=== PATIENT | female | born 1975 ===

== ENCOUNTER 2018-07-01 17:17 | Emergency (ER) | payer OTHER ==
[2018-07-01 17:43] VITALS: BMI 27.4
[2018-07-01 17:47] VITALS: RESP 18; O2SAT 100
[2018-07-01] MEDS ORDERED: Iohexol 240 (50 ml) PO STA (18:31)
--- NOTE | 2018-07-01 18:35 | C.PDOC ---
History Of Present Illness 42 y/o female presents to the ED for evaluation of a painful swelling to her left groin/vaginal area. Patient reports the area was initially smaller and has grown in size, especially over the last week. She notes for the last 2 nights she was unable to sleep due to increase in pain. Otherwise she denies any vaginal bleeding, discharge or bleeding from the site, fevers, chills, or urinary complaints. Patient denies prior hx of surgery. She was seen in [place] several months ago and was told it may be a cyst vs hernia, but never given definitive answer. Patient has an appointment in a clinic at the end of the month, but was unable to wait due to worsening symptoms. Time Seen by Provider: 07/01/18 18:06 Chief Complaint (Nursing): Female Genitourinary History Per: Patient History/Exam Limitations: no limitations Onset/Duration Of Symptoms: Days Current Symptoms Are (Timing): Worse Quality Of Discomfort: "Pain" Past Medical History Reviewed: Historical Data, Nursing Documentation, Vital Signs Vital Signs: Last Vital Signs Temp 99.1 F 07/01/18 17:43 Pulse 90 07/01/18 17:43 Resp 18 07/01/18 17:43 BP 157/90 H 07/01/18 17:43 Pulse Ox 100 07/01/18 17:43 - Medical History PMH: No Chronic Diseases Surgical History: No Surg Hx Family History: States: No Known Family Hx - Social History Hx Tobacco Use: No Hx Alcohol Use: No Hx Substance Use: No Review Of Systems Except As Marked, All Systems Reviewed And Found Negative. Constitutional: Negative for: Fever, Chills Cardiovascular: Negative for: Chest Pain Respiratory: Negative for: Shortness of Breath Gastrointestinal: Negative for: Nausea, Vomiting, Diarrhea Genitourinary: Positive for: Other (Left groin mass/pain). Negative for: Dysu jessee, Frequency, Vaginal Discharge, Vaginal Bleeding Skin: Negative for: Rash Neurological: Negative for: Weakness, Numbness Physical Exam - Physical Exam Appears: Non-toxic Skin: Normal Color, Warm, No Rash Head: Atraumatic, Normacephalic Eye(s): bilateral: Normal Inspection, PERRL, EOMI Neck: Normal ROM Chest: Symmetrical Cardiovascular: Rhythm Regular, No Murmur Respiratory: Normal Breath Sounds, No Accessory Muscle Use, Other (No respiratory distress) Gastrointestinal/Abdominal: Soft, No Tenderness, No Distention Pelvic: No Vaginal Bleeding, No Vaginal Discharge, Other (External Exam: There is a 5x6 cm area of induration to the left inguinal region, non-reducible, non- mobile, with no fluctuance, no drainage, no rashes) Extremity: Bilateral: Atraumatic, Normal Color And Temperature Neurological/Psych: Oriented x3, Normal Speech ED Course And Treatment - Laboratory Results Result Diagrams: 07/01/18 18:50 07/01/18 18:50 O2 Sat by Pulse Oximetry: 100 (RA) Pulse Ox Interpretation: Normal - CT Scan/US Pelvic US Other Rad Studies (CT/US): Read By Radiologist, Radiology Report Reviewed CT/US Interpretation: Name:CHIQUI SULLIVAN Exam Date:Jul 01, 2018 7:39:52 PM EDT. Modality Type:SD\\US\\SR. Description:US - PELVIC REAL TIME TRANSABDOMINAL/TRANSVAGINAL W COLOR DOPPLER. Gender:F Laterality:Not applicable. :75 Referring Physician:Kristen Adler ([place]). History. Pelvic pain. Left inguinal mass versus hernia. Comparison. CT same date. Technique. TA/TV. Findings. Uterus. Measures 12.01 x 6.85 x 7.96 cm. Posterior fibroid measures 2.11 x 1.35 x 1.59 cm. Mid uterine fibroid measures 2.16 x 2.06 x 1.94 cm. Fundal uterine fibroid measures 4.54 x 4.75 x 4.97 cm. Endometrium. Measures 13 mm in diameter. Unremarkable. Right ovary. Measures 3.21 x 2.41 x 2.68 cm. No solid mass. Normal flow. Free fluid is seen around the ovary. Left ovary. Measures 2.55 x 1.93 x 2.37 cm. No solid mass. Normal flow. Free fluid. Free fluid noted in the pelvic cul-de-sac. Other Findings. Left inguinal area palpable mass shows large cy stic structure with septations measuring 9.18 x 4.23 x 9.12 cm. Impression. 1. Uterine fibroids. 2. Left inguinal large cystic structure with septations measuring 9.18 x 4.23 x 9.[address] report. 3. Free fluid in the pelvic cul-de-sac. 4. Free fluid around the right ovary. . Electronically signed on Jul 01, 2018 9:20:01 PM EDT by: Audie Davis M.D., MOON Certified By ABR & [facility] CT Abdomen/Pelvis Other Rad Studies (CT/US): Read By Radiologist, Radiology Report Reviewed CT/US Interpretation: Name:CHRISTINE FLORIAN Exam Date:Jul 01, 2018 8:35:04 PM EDT. Modality Type:CT. Description:CT - ABDOMEN AND PELVIS WITH CORONAL AND SAGITTAL MPRS. Gender:F Laterality:Not applicable. :75 Referring Physician:Kristen Adler). EXAM: CT Abdomen and Pelvis with IV contrast. CLINICAL HISTORY: Pelvic Pain, Ultrasound done today as well. TECHNIQUE: Axial computed tomography images of the abdomen and pelvis with intravenous contrast. 0.00 mGy-cm. CONTRAST: With; OMNI 240 & VISI 320 100MLS. COMPARISON: Comparison is made to pelvic ultrasound evaluation performed earlier the same date. FINDINGS: LUNG BASES: The lung bases appear clear. No pleural effusions are seen. LIVER: Unremarkable. GALLBLADDER AND BILE DUCTS: The gallbladder appears within normal limits. No radioopaque gallstones are seen. No biliary ductal dilatation is evident. PANCREAS: Unremarkable. SPLEEN: Unremarkable. ADRENAL GLANDS: Unremarkable. KIDNEYS, URETERS, AND BLADDER: The kidneys appear within normal limits. There is no hydronephrosis or hydroureter. No urinary calculi are seen. The urinary bladder appeared normal in size and configuration. STOMACH AND B OWEL: Unremarkable appearance of the stomach. No evidence of bowel obstruction. No evidence suggesting enteritis or colitis. Relatively abundant fecal material is present in the colon suggestive of constipation. APPENDIX: No evidence of acute appendicitis on CT examination. PERITONEUM: No free fluid. No free air. An approximately 8.8 x 4.4 x 6.3 cm multiloculated fluid density mass is seen wi thin a left femoral hernia. Its density measurements ranged between 10.4-12.9 HU. Numerous differential diagnostic considerations are known; a few to consider include hydrocele of the canal of Nuck, iliopectineal bursa, lymphangioma, epidermal inclusion cyst, mesothelial cyst of the round ligament, or inguinal endometriosis. This is an incomplete listing of differential diagnostic possibilities. Surgical consultation could be considered. There is a small umbilical hernia which contains fat. LYMPH NODES: No lymphadenopathy is evident. REPRODUCTIVE: Unremarkable as visualized. VASCULATURE: No evidence of abdominal aortic aneurysm. BONES: No aggressive appearing osseous lesion. No acute osseous pathology evident. IMPRESSION: 1. Multiloculated fluid density mass within a left femoral hernia. Several, but incomplete list of differential diagnostic possibilities given above. Surgical consultation could be considered. 2. Abundant fecal material within the colon suggests constipa tion. 3. Small umbilical hernia which contains fat. . Electronically signed on Jul 01, 2018 9:32:55 PM EDT by: Audie Davis M.D., MOON Certified By [facility]BR & [facility] Medical Decision Making Medical Decision Making: Impression: Left inguinal mass, r/o hernia Plan: - Blood work - Urinalysis - Urine culture - Pelvic US - CT Abdomen/Pelvis with PO&IV contrast Labs and imaging reviewed. 9:41pm Paged surgical supplies sterilizer. The patient was evaluated by the surgery team and the case was discussed with Dr. Motley (general surgeon oncall) who states that the patient can be followed up outpatient. Disposition - Disposition [facility]Outside[facility] Disposition: HOME/ ROUTINE Disposition Time: 23:22 Condition: GOOD Additional Instructions: Esta es shala hernia con un quiste. Debe seguir con el cirujano en la clnica. Christian shala nj dentro de 1-2 diego sin falta. Regrese a la isabel de urgencias si hay dolor agravado, fiebre o vmitos, Prescriptions: Naproxen [Naprosyn] 500 mg PO BID #20 tab Instructions: Inguinal and Femoral (Groin) Hernias Forms: [employer] (Sinhala) Print Language: MOROCCAN - Clinical Impression Clinical Impression: Femoral hernia - PA / CHIEF OF ANESTHESIOLOGY / Resident Statement MD/DO has reviewed & agrees with the documentation as recorded. - Scribe Statement The provider has reviewed the documentation as recorded by the Bradfordibkyle Tee All medical record entries made by the Scribe were at my direction and pers onally dictated by me. I have reviewed the chart and agree that the record accurately reflects my personal performance of the history, physical exam, medical decision making, and the department course for this patient. I have also personally directed, reviewed, and agree with the discharge instructions and disposition.
[2018-07-01] MEDS ORDERED: Iohexol 240 (50 ml) ONE (18:47)
[2018-07-01 18:58] LABS: BASO # 0.1 K/uL (0.0-0.2); EOS # 0.1 K/uL (0.0-0.7); EOS % 0.9 % (0.0-4.0); HEMOGLOBIN 11.3 g/dL (11.0-16.0); LYMPH # 2.9 K/uL (1.0-4.3); LYMPH % 43.5 % (20.0-40.0); MEAN CELL VOLUME 79.7 fL (81.0-99.0); MEAN CORPUSCULAR HEMOGLOBIN 24.5 pg (27.0-31.0); MEAN CORPUSCULAR HGB CONC 30.8 g/dL (33.0-37.0); MEAN PLATELET VOLUME 8.6 fL (7.2-11.7); MONO # 0.4 K/uL (0.0-0.8); MONO % 5.8 % (0.0-10.0); NEUT # 3.3 K/uL (1.8-7.0); NEUT % 48.8 % (50.0-75.0); NRBC % 0.1 % (0.0-2.0); RBC 4.61 Mil/uL (3.80-5.20); RED CELL DISTRIBUTION WIDTH 15.7 % (11.5-14.5); WHITE BLOOD COUNT 6.7 K/uL (4.8-10.8)
[2018-07-01 19:01] LABS: HCG,QUALITATIVE URINE NEGATIVE (NEGATIVE)
[2018-07-01 19:04] LABS: INR 1.1
[2018-07-01 19:11] LABS: ALB/GLOB RATIO 1.2 (1.0-2.1); ALBUMIN 4.5 g/dL (3.5-5.0); BLOOD UREA NITROGEN 15 mg/dL (7-17); CALCIUM 9.3 mg/dl (8.6-10.4); GFR NON-AFRICAN AMERICAN > 60; LIPASE 96 U/L (23-300)
[2018-07-01 19:14] LABS: ALT/SGPT 15 U/L (9-52); AST/SGOT 34 U/L (14-36)
[2018-07-01 19:16] LABS: SQUAMOUS EPITHIAL 2 /hpf (0-5); URINE BACTERIA MOD (<OCC); URINE BILIRUBIN NEGATIVE (NEGATIVE); URINE BLOOD 1+ (NEGATIVE); URINE CLARITY Clear (Clear); URINE COLOR Yellow (YELLOW); URINE GLUCOSE (UA) NORMAL (Normal); URINE LEUKOCYTE ESTERASE NEG Leu/uL (Negative); URINE PROTEIN NEGATIVE (NEGATIVE); URINE UROBILINOGEN NORMAL mg/dL (0.2-1.0)
[2018-07-01] MEDS ORDERED: Iodixanol 320 MG/ML 100 ML BOTTLE IV ONE (20:31)
[2018-07-01 21:38] VITALS: BP 112/72; PULSE 63; TEMP 98.3
--- NOTE | 2018-07-01 23:14 | CP.PCM.CON ---
History of Present Illness - History of Present Illness History of Present Illness: CONSULT NOTE FOR DR. BERMEO Reason: left inguinal mass 42F presents with left inguinal pain. Patient states she has been having pain in this region for many years as long as she could remember. She states pain usually gets worse with menstrual period. She states the pain is associated with a left inguinal mass which has been growing for years also. She states the mass has decreased in the past but is now back and bigger. She had it evaluated in [facility] before and was told it was a cyst or hernia. Patient denies abdominal pain, denies nausea or vomiting, denies fevers or chills and denies food intolerance. Patient admits to constipation which she has a history of. She had two children the youngest being 19, and still has menstrual periods. PMH: Constipation, left inguinal region mass PSH: denies Social: denies tobacco, alcohol or illicit drug use Allergies: NKDA Past Patient History - Past Social History Smoking Status: Never Smoked - PSYCHIATRIC Hx Substance Use: No - SURGICAL HISTORY Hx Surgeries: No - ANESTHESIA Hx Anesthesia: No Meds Allergies/Adverse Reactions: Allergies Allergy/AdvReac Type Severity Reaction Status Date / Time No Known Allergies Allergy Verified 07/01/18 17:42 Physical Exam - Constitutional Appears: Non-toxic, No Acute Distress - Eye Exam Eye Exam: EOMI, PERRL - ENT Exam ENT Exam: Mucous Membranes Moist - Respiratory Exam Respiratory Exam: Clear to Auscultation Bilateral, NORMAL BREATHING PATTERN - Cardiovascular Exam Cardiovascular Exam: REGULAR RHYTHM, +S1, +S2 - GI/Abdominal Exam GI & Abdominal Exam: Soft. absent: Distended, Firm, Guarding, Rebound, Rigid, Tenderness Additional comments: Left inguinal region mass, firm to touch, tender to touch, no erythema, no drainage - Extremities Exam Extremities exam: Negative for: pedal edema, tenderness - Neurological Exam Neurological exam: Alert, Oriented x3 - Psychiatric Exam Psychiatric exam: Normal Affect, Normal Mood - Skin Skin Exam: Dry, Intact, Normal Color, Warm Results - Vital Signs Recent Vital Signs: Last Vital Signs Temp 98.3 F 07/01/18 21:37 Pulse 63 07/01/18 21:37 Resp 18 07/01/18 21:37 BP 112/72 07/01/18 21:37 Pulse Ox 100 07/01/18 21:41 - Labs Result Diagrams: 07/01/18 18:50 07/01/18 18:50 Labs: Laboratory Results - last 24 hr 07/01/18 07/01/18 07/01/18 18:50 18:50 18:50 WBC 6.7 RBC 4.61 Hgb 11.3 Hct 36.7 MCV 79.7 L MCH 24.5 L MCHC 30.8 L RDW 15.7 H Plt Count 312 MPV 8.6 Neut % (Auto) 48.8 L Lymph % (Auto) 43.5 H [place] % (Auto) 5.8 Eos % (Auto) 0.9 Baso % (Auto) 1.0 Neut # (Auto) 3.3 Lymph # (Auto) 2.9 [place] # (Auto) 0.4 Eos # (Auto) 0.1 Baso # (Auto) 0.1 PT 12.0 INR 1.1 APTT 32 Sodium 137 Potassium 3.9 Chloride 103 Carbon Dioxide 24 Anion Gap 14 BUN 15 Creatinine 0.7 Est GFR ( Amer) > 60 Est GFR (Non-Af Amer) > 60 Random Glucose 95 Calcium 9.3 Total Bilirubin 0.6 AST 34 ALT 15 Alkaline Phosphatase 48 Total Protein 8.2 Albumin 4.5 Globulin 3.7 Albumin/Globulin Ratio 1.2 Lipase 96 Urine Color Urine Clarity Urine pH Ur Specific [place] Urine Protein Urine Glucose (UA) Urine Ketones Urine Blood Urine Nitrate Urine Bilirubin Urine Urobilinogen Ur Leukocyte Esterase Urine WBC (Auto) Urine RBC (Auto) Ur Squamous Epith Cells Urine Bacteria Urine HCG, Qual 07/01/18 18:50 WBC RBC Hgb Hct MCV MCH MCHC RDW Plt Count MPV Neut % (Auto) Lymph % (Auto) [place] % (Auto) Eos % (Auto) Baso % (Auto) Neut # (Auto) Lymph # (Auto) [place] # (Auto) Eos # (Auto) Baso # (Auto) PT INR APTT Sodium Potassium Chloride Carbon Dioxide Anion Gap BUN Creatinine Est GFR ( Amer) Est GFR (Non-Af Amer) Random Glucose Calcium Total Bilirubin AST ALT Alkaline Phosphatase Total Protein Albumin Globulin Albumin/Globulin Ratio Lipase Urine Color Yellow Urine Clarity Clear Urine pH 5.0 Ur Specific [place] 1.028 Urine Protein Negative Urine Glucose (UA) Normal Urine Ketones Negative Urine Blood 1+ H Urine Nitrate Negative Urine Bilirubin Negative Urine Urobilinogen Normal Ur Leukocyte Esterase Neg Urine WBC (Auto) < 1 Urine RBC (Auto) 5 H Ur Squamous Epith Cells 2 Urine Bacteria Mod H Urine HCG, Qual Negative Assessment & Plan - Assessment and Plan (Free Text) Assessment: 42F with left inguinal mass Plan: - will require work up for mass - may follow up in outpatient clinic Discussed with Dr. Tolu Pineda, PGY3
--- NOTE | 2018-07-02 10:36 | CT ---
PROCEDURE: CT Abdomen and Pelvis with oral and IV contrast. HISTORY: R/o femoral hernia COMPARISON: CT abdomen and pelvis with contrast performed 12/14/17 TECHNIQUE: Contiguous axial images of the abdomen and pelvis. Oral and IV contrast was administered. Coronal and Sagittal reformats generated and reviewed. Contrast dose: 100 mL Visipaque 320 IV Radiation dose: Total exam DLP = 600.83 mGy-cm. This CT exam was performed using one or more of the following dose reduction techniques: Automated exposure control, adjustment of the mA and/or kV according to patient size, and/or use of iterative reconstruction technique. FINDINGS: LOWER THORAX: No visible consolidation, pleural effusion, or pneumothorax. LIVER: Unremarkable. GALLBLADDER AND BILE DUCTS: Unremarkable. PANCREAS: 3 mm hypodensity at the pancreatic body/tail junction possibly fatty density, too small to characterize. SPLEEN: Unremarkable. ADRENALS: Unremarkable. KIDNEYS AND URETERS: The kidneys enhance symmetrically. No hydronephrosis or obstructing renal calculus. BLADDER: The urinary bladder appears unremarkable. REPRODUCTIVE: Uterus is present and appears heterogeneous. Presumed bilateral ovarian cysts. APPENDIX: The appendix appears within normal limits of caliber. No secondary signs of acute appendicitis. BOWEL: The stomach is nondistended. The bowel loops appear within normal limits of caliber without evidence of intestinal obstruction. Moderate diffuse constipation. PERITONEUM: No significant free fluid. No definite free air. LYMPH NODES: No bulky lymphadenopathy identified. VASCULATURE: No aortic aneurysm. No atherosclerotic calcification or mural plaque present. BONES: No acute osseous abnormality is detected. OTHER FINDINGS: Indeterminate 4.4 x 8.8 cm multiloculated fluid density mass extending from the pelvis into a left inguinal hernia. Tiny fat containing umbilical hernia. IMPRESSION: Indeterminate 4.4 x 8.8 cm multiloculated fluid density mass extending from the pelvis into a left inguinal hernia. Moderate diffuse constipation. Heterogeneous appearance of the uterus, possibly related to fibroids. Evidence of bilateral probable ovarian cysts. 3 mm hypodensity at the pancreatic body/tail junction possibly fatty density, too small to characterize. Additional findings as above. Preliminary impression was provided by [employer].
--- NOTE | 2018-07-02 13:13 | US ---
Date of service: 07/01/2018 HISTORY: L inguinal mass, ? hernia COMPARISON: CT abdomen pelvis with contrast performed 07/01/18 TECHNIQUE: Real-time transabdominal pelvic ultrasound was performed. In addition a transvaginal pelvic ultrasound was necessary to better depict pelvic anatomy. FINDINGS: UTERUS: Measures 12.0 x 6.9 x 8.0 cm. Anteverted. Heterogeneous uterine echotexture. 2.1 x 1.4 x 1.6 cm posterior uterine fibroid. 2.2 x 2.1 x 1.9 cm mid uterine fibroid. 4.5 x 4.8 x 5.0 cm fundal fibroid. ENDOMETRIUM: Measures 1.3 cm in diameter. CERVIX: No cervical abnormality identified. RIGHT OVARY: Measures 3.2 x 2.4 x 2.7 cm. Blood flow is demonstrated. LEFT OVARY: Measures 2.6 x 1.9 x 2.4 cm. Blood flow is demonstrated. FREE FLUID: Small pelvic free fluid. Small fluid is noted adjacent to the right ovary. OTHER FINDINGS: In region of palpable abnormality, there is a 9.2 x 4.2 x 9.1 cm septated multilocular cystic mass/collection. IMPRESSION: Fibroid uterus. Small pelvic free fluid. Small fluid adjacent to the right ovary. In region of palpable abnormality, there is a 9.2 x 4.2 x 9.1 cm septated multilocular cystic mass/collection. Preliminary impression was provided by [employer].
== END 2018-07-01 23:35 | disposition home or self-care (01) ==
LOC: C.ER 17:17
DX: K41.90 Unilateral femoral hernia, without obstruction or gangrene, not specified as recurrent (principal)
CPT/HCPCS: 74177; 76830; 76856; 80053; 81001; 83690; 84703; 85025; 85610; 85730; 87086; 96372; 99284; J1885; Q9966; Q9967

== ENCOUNTER 2018-08-13 06:20 | Day surgery (SDC) | payer OTHER ==
[2018-08-13] MEDS ORDERED: Bupivacaine HCl 0.5% PF (10 ml) Inj ONE (07:37)
[2018-08-13] MEDS ORDERED: ceFAZolin 1 gm in NS 2 GM/200 ML BAG IVPB ONE (07:38)
[2018-08-13] MEDS ORDERED: Midazolam 2 MG/2 ML VIAL ONE (07:58)
[2018-08-13] MEDS ORDERED: Propofol 10 mg/ml Inj (20 ML) ONE (07:58)
--- NOTE | 2018-08-13 09:25 | PCM.SURG1 ---
Surgeon's Initial Post Op Note - Surgeon's Notes Surgeon: Dr. Motley Spa Technician: Dr. Estrada PGY2, PGY2, Lexi OMS3 Type of Anesthesia: General LMA Pre-Operative Diagnosis: Left Inguinal Hernia Operative Findings: Multiple Endometrioma cysts in the inguinal canal. for details see op note Post-Operative Diagnosis: 1. Left Inguinal Hernia. 2. Endometrioma Operation Performed: Open Left Inguinal hernia Repair, excision of Endometriomas Specimen/Specimens Removed: 1. Hernia Sac and Endometriomas Estimated Blood Loss: EBL {In ML}: 10 Drains Used: No Drains Post-Op Condition: Good Date of Surgery/Procedure: 08/13/18 Time of Surgery/Procedure: 09:26
--- NOTE | 2018-08-13 09:27 | PCM.OP ---
Operative Report - Operative Report Date of Surgery/Procedure: 08/13/18 Time of Surgery/Procedure: 09:26 Surgeon: Dr. Motley Head Machinist: Natalie PGY2, Merchant FONSECAY2 Anesthesia/Sedation: General LMA Dr. Peñaloza Pre-Operative Diagnosis: Left inguinal hernia Post-Operative Diagnosis: Left inguinal hernia with endometriomas Indication for Surgery: pain, left inguinal hernia with endometriomas Operative Findings: left inguinal hernia with endometriomas Procedure/Operation Description: Procedure: Primary repair of Left inguinal hernia and excision of endometriomas 42F who denies any significant PMH presents with Left inguinal hernia. Proposed procedure was Left inguinal hernia repair. Consent was obtained before the procedure. Risks/benefits were discussed at length. Patient verbalized understanding and agreement. Patient was taken to the Operating room and placed in supine position. SCDs were applied to bilateral lower extremities. General endotracheal anesthesia was administered for the procedure. Patients abdomen was prepped with chlorhexadine and draped in the usual sterile fashion. Timeout was performed. #15 blade was used to make an oblique incision above the inguinal ligament near the hernia site. The subcutaneous tissue was divided down to the fascia. The external fas pascale was exposed and divided. Tissue was bluntly dissected away from the fascial edges. The spermatic cord was identified and isolated with a colette drain. The hernia and defect were also identified. Endometriomas were present near the round ligament and external ring. Endometriomas were dissected off the round ligament. Vicryl tie was used to ligated the endometrioma sac and round ligament. Once dissected and round ligament ligated, the small hernia was reduced. The area was examined for hemostasis. Running 2-0 Vicryl suture was used to primarily close the external oblique fascia. The subcutaneous tissue was approximated with interrupted 3-0 vicryl sutures. The subcuticular layer was then closed with a running 4-0 monocryl suture. The skin was dressed with dermabond. All nursing counts were correct and confirmed. The patient tolerated the procedure well with no apparent complications. Patient transferred to PACU for recovery. Ebl was 10cc. Patient cleared for discharge when SDS criteria met. Estimated Blood Loss: 10cc Complications: None Discharge & Condition: Good, patient stable for discharge when SDS criteria is met
[2018-08-13] MEDS: HYDROmorphone 0.5 mg/0.5 ml ISec IVP PRN ×2 (09:47→10:45)
[2018-08-13 09:51] VITALS: O2SAT 100
[2018-08-13] MEDS ORDERED: Oxycodone/Acetaminophen 5/325 mg Tab PO ONE (10:00)
[2018-08-13 11:52] VITALS: BP 132/70; PULSE 67; RESP 18; TEMP 98
== END 2018-08-13 12:45 | disposition home or self-care (01) ==
LOC: C.SDS 06:20
PROVIDERS: ATTEND Specialist
DX: K40.90 Unilateral inguinal hernia, without obstruction or gangrene, not specified as recurrent (principal); N80.3 Endometriosis of pelvic peritoneum
CPT/HCPCS: 49203; 49505; 88305; J0690; J1170; J2250; J2704; J2765; J3010